=== PATIENT | male | born 1935 | race Caucasian/White ===

== ENCOUNTER 2018-08-20 06:22 | Day surgery (SDC) | payer OTHER ==
--- NOTE | 2018-08-15 09:21 | RAD REPORT ---
EXAM DESCRIPTION: Angelica Leger (2 Views)08/15/2018 9:14 am CLINICAL HISTORY: Cardiomegaly/preop exam for heart valve surgery COMPARISON: 2016 FINDINGS: The lungs appear clear of acute infiltrate. The heart is moderately enlarged. Scoliosis i nvolves the spine IMPRESSION: No acute abnormalities displayed
[2018-08-15 09:53] LABS: Absolute Lymphocytes (CBC) 2.1 K/uL (0.7-4.9); Absolute Monocytes 0.8 K/uL (0.1-1.3); Absolute Neutrophil 5.6 K/uL (1.8-8.0); Basophils % 0.6 % (0-1.3); Eosinophils % 3.6 % (0-4.4); Hematocrit 35.3 % (39.6-49.0); Lymphocytes % 23.2 % (15.3-44.8); MCV 65.8 fL (80-100); MPV 9.4 fL (7.6-11.3); Monocytes % 8.8 % (3.3-12.3); RBC Red Blood Cell Count 5.36 M/uL (4.33-5.43)
[2018-08-15 10:03] LABS: Potassium 4.6 mmol/L (3.5-5.1)
[2018-08-15 10:58] LABS: Platelet Estimate ADEQ
[2018-08-15 10:59] LABS: Anisocytosis 1+; Blood Morphology Comment NOTED (NOT SEEN); Hypochromasia 2+
[2018-08-15 11:08] LABS: Protime INR 0.96
--- NOTE | 2018-08-15 14:32 | EKG ---
Test Date: 2018-08-15 Test Time: 08:55:20 Attendance Clerk: TAJ MEASUREMENT RESULTS: Intervals: Rate: 59 IL: 206 QRSD: 100 QT: 430 QTc: 425 [place]: P: 66 IL: 206 QRS: 45 T: 43 INTERPRETIVE STATEMENTS: Sinus bradycardia Otherwise normal ECG Compared to ECG 10/12/2016 17:48:20 No significant changes Electronically Signed On 08-15-18 14:31:17 CDT by Maurice Harrison
[~2018-08-20 06:22] MED LIST: ATROPINE SULF 1 MG/10 ML SYR IV ONE; FENTANYL CITR 100 MCG/2 ML ONE; MIDAZOLAM HCL 2 MG/2 ML INJ ONE
--- OUTSIDE RECORDS SUMMARY | 2018-08-20 06:24 | XMS REPORT | Clinical Summary ---
:1935 Author Organization [facility] Address [address] [place] [address] Phone Care Team Providers Name Role Phone Unavailable Primary Care Provider Unavailable Allergies No Known Allergies Current Medications Not on file Active Problems Not on file Encounters Date Type Specialty Care Team Description 08/12/2018 Hospital Encounter Cardiology Rj Rose Mitral valve MD Elan insufficiency, unspecified etiology 08/07/2018 Outside Orders Central Scheduling Rj Rose Mitral valve MD Elan insufficiency, unspecified etiology (Primary Dx) after 08/19/2017 Social History Tobacco Use Types Packs/Day Years Used Date Never Assessed Sex Assigned at Date Recorded Not on file Last Filed Vital Signs Vital Sign Reading Time Taken Blood Pressure 134/72 08/12/2018 10:06 AM CDT Pulse 59 08/12/2018 10:06 AM CDT Temperature - - Respiratory Rate 15 08/12/2018 10:06 AM CDT Oxygen Saturation 97% 08/12/2018 10:06 AM CDT Inhaled Oxygen Concentration - - Weight - - Height - - Body Mass Index - - Plan of Treatment Not on file Results ECHOCARDIOGRAM REPORT - SCAN (08/12/2018 2:52 PM)Transesophageal echo (2017 8:59 AM) Component Value Ref Range Ejection Fraction Specimen Performing Laboratory [facility] Narrative Transesophageal Echocardiography Report (MARILEE) Demographics Patient NameRIGO JARAMILLO Date of Study 08/12/2018 GenderMale Visit [id number] RaceUnknown Number op Number Date of 1935 Referring Rj Rose Physician Age 83 year(s) Workforce Management Coordinator Bi Epperson Interpret Sonia Johnston, Physician KAUR Saeed FEL Procedure Type of Study MARILEE procedure:TRANSESOPHAGEAL ECHO Indications:Mitral regurgitation. Clinical History HTN,SOB,CP,MR,MVP Height: 70 inches Weight: 83.91 kg (185 lbs) BSA: 2.02 m^2 BMI: 26.54 kg/m^2 HR: 57 bpm BP: 148/68 mmHg Procedure Informed Consent MARILEE procedure notes The patient was counseled and informed consent was obtained. Topical and intravenous anesthesia was administered. The esophagus was intubated without difficulty. The probe was passed and all standard echocardiographic views were obtained. IV saline contrast echo examination was performed with MARILEE. The patient tolerated the procedure well. Procedure Medications - Versed I.V. 2 mg. - Fentanyl I.V. 50 mcg. Summary Normal left ventricular chamber size. Normal wall thickness. Normal overall left ventricular systolic function. No apparent segmental wall motion abnormalities. There is bileaflet mitral valve prolapse. 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 There is severe, eccentric mitral regurgitation. The jet is directed anterior and septally. Unable to estimate peak systolic PA pressure; inadequate TR velocity signal. Mild aortic stenosis. AoV area by planimetery is in the range of 1.8 cm2. Signature Findings Rhythm/BPRegular sinus rhythm during the exam. Left Ventricle Normal left ventricular chamber size. Normal wall thickness. Normal overall left ventricular systolic function. No apparent segmental wall motion abnormalities. Left AtriumLA is enlarged but severity assessment is unreliable due to known MARILEE sector size limitation. Right VentricleThe right ventricular chamber size and systolic function are within normal limits. Right Atrium RA cavity size is normal . Atrial SeptumA patent foramen ovale (PFO) is not demonstrated by color Doppler. IV saline contrast injection was negative for a PFO (patent foramen ovale) at rest . Aortic Valve Mild AoV cusp thickening. Mild aortic stenosis. AoV area by planimetery is in the range of 1.8 cm2. Mild aortic regurgitation. Mitral Valve Mild mitral annular calcification. There is bileaflet mitral valve prolapse. 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 There is severe, eccentric mitral regurgitation. The jet is directed anterior and septally. Tricuspid ValveNormal TV structure and function. No evidence of tricuspid regurgitation. Unable to estimate peak systolic PA pressure; inadequate TR velocity signal. Pulmonic Valve Normal PV structure and function. AortaGrade 2 plaque (extensive intimal thickening) in the descending thoracic aorta . There is focal aortic atheroma in the following location: proximal aortic arch . PericardiumNo pericardial effusion is visualized. IVC/SVC/PA/PV/PleuralThe right upper pulmonary vein (RUPV) is normal . Reversed systolic flow is noted in the right upper pulmonary vein. Procedure Note Interface, External Ris In - 08/12/2018 2:16 PM CDT Transesophageal Echocardiography Report (MARILEE) Demographics Patient Name RIGO JARAMILLO Date of Study 08/12/2018 Gender Male Visit Number [id number] Race Unknown Room Number op Number Date of 1935 Referring Rj Driver MD Age 83 year(s) Workforce Management Coordinator Bi Epperson Interpreting Physician CARISSA Pathak Fellow KAUR Bobby FEL Procedure Type of Study MARILEE procedure:TRANSESOPHAGEAL ECHO Indications:Mitral regurgitation. Clinical History HTN,SOB,CP,MR,MVP Height: 70 inches Weight: 83.91 kg (185 lbs) BSA: 2.02 m^2 BMI: 26.54 kg/m^2 HR: 57 bpm BP: 148/68 mmHg Procedure Informed Consent MARILEE procedure notes The patient was counseled and informed consent was obtained. Topical and intravenous anesthesia was administered. The esophagus was intubated without difficulty. The probe was passed and all standard echocardiographic views were obtained. IV saline contrast echo examination was performed with MARILEE. The patient tolerated the procedure well. Procedure Medications - Versed I.V. 2 mg. - Fentanyl I.V. 50 mcg. Summary Normal left ventricular chamber size. Normal wall thickness. Normal overall left ventricular systolic function. No apparent segmental wall motion abnormalities. There is bileaflet mitral valve prolapse. 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 There is severe, eccentric mitral regurgitation. The jet is directed anterior and septally. Unable to estimate peak systolic PA pressure; inadequate TR velocity signal. Mild aortic stenosis. AoV area by planimetery is in the range of 1.8 cm2. Signature Findings Rhythm/BP Regular sinus rhythm during the exam. Left Ventricle Normal left ventricular chamber size. Normal wall thickness. Normal overall left ventricular systolic function. No apparent segmental wall motion abnormalities. Left Atrium LA is enlarged but severity assessment is unreliable due to known MARILEE sector size limitation. Right Ventricle The right ventricular chamber size and systolic function are within normal limits. Right Atrium RA cavity size is normal . Atrial Septum A patent foramen ovale (PFO) is not demonstrated by color Doppler. IV saline contrast injection was negative for a PFO (patent foramen ovale) at rest . Aortic Valve Mild AoV cusp thickening. Mild aortic stenosis. AoV area by planimetery is in the range of 1.8 cm2. Mild aortic regurgitation. Mitral Valve Mild mitral annular calcification. There is bileaflet mitral valve prolapse. 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 There is severe, eccentric mitral regurgitation. The jet is directed anterior and septally. Tricuspid Valve Normal TV structure and function. No evidence of tricuspid regurgitation. Unable to estimate peak systolic PA pressure; inadequate TR velocity signal. Pulmonic Valve Normal PV structure and function. Aorta Grade 2 plaque (extensive intimal thickening) in the descending thoracic aorta . There is focal aortic atheroma in the following location: proximal aortic arch . Pericardium No pericardial effusion is visualized. IVC/SVC/PA/PV/Pleural The right upper pulmonary vein (RUPV) is normal . Reversed systolic flow is noted in the right upper pulmonary vein. after 08/19/2017
[2018-08-20] MEDS ORDERED: HEPA 1000U/500MLS 1,000 UNIT/500 ML BAG IV ONE (06:27)
[2018-08-20] MEDS ORDERED: NA CHLORIDE 0.9% 500 ML ONE (06:27)
[2018-08-20] MEDS ORDERED: NA CHLORIDE 0.9% 0 ML ONE (06:28)
[2018-08-20] MEDS ORDERED: NA CHLORIDE 0.9% 100 ML IV ONE (06:28)
[2018-08-20] MEDS ORDERED: ATROPINE SULF 1 MG/10 ML SYR IV ONE (06:28)
[2018-08-20] MEDS ORDERED: LIDOCAINE 1% MPF 5 ML VIAL ONE ×2 (06:41→08:40)
[2018-08-20] MEDS ORDERED: FUROSEMIDE 20 MG/ 2ML VIAL ONE (07:28)
[2018-08-20] MEDS ORDERED: MIDAZOLAM HCL 2 MG/2 ML INJ ONE (07:28)
[2018-08-20] MEDS ORDERED: FENTANYL CITR 100 MCG/2 ML ONE (07:29)
[2018-08-20 09:17] VITALS: O2SAT 100
[2018-08-20 12:00] VITALS: BP 120/57; TEMP 97
--- NOTE | 2018-08-20 19:05 | OP ---
Date of Procedure: 08/20/2018 Surgeon: Maurice Harrison MD Procedure: Left heart catheterization, right heart catheterization, selective coronary artery angiog trupti, left ventriculogram, O2 saturations and cardiac output. 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 The plan was to do the studies before he has mitral valve clipping by Dr. Rose in [place]. Procedure In Detail: The patient was brought into the slabber as an outpatient, prepped and draped in the routine sterile fashion, given 2 mg of Versed for IV sedation. O2 nasal cannula 2 L was also used. A 6-Cymraes sheath introduced in the right common femoral artery. A 7-Cymraes sheath introduced in the right common femoral vein. StarClose was used to close the artery. Pressure was held to vikash se the vein. Six-Cymraes catheters were used to do the diagnostic catheterization on the left side an d he had minimal LAD plaquing, otherwise normal RCA and circumflex. The right heart catheterization using [place]-Zeinab catheter via the right common femoral vein was used to obtain a cardiac output of 4.3 L/minute. O2 saturations were pending. Ejection fraction was 60%. End-diastolic pressure was 20 m mHg. Right ventricular pressure was 58/12, PA pressure was 63/21, wedge was 22. Complications: None. Blood Loss: 5 cc. Postoperative Diagnoses: Severe mitral regurgitation, mild coronary artery disease, severe pulmonary hypertension. The plan is for mitral valve clipping. Operators: Maurice Harrison M.D., and Marialuisa Carey. Total conscious sedation was 45 minutes. SANJAY/BARBARA Voice ID: [id number] Report ID: [id number]
== END 2018-08-20 10:10 | disposition home health service (06) ==
LOC: CCL 06:22
DX: I34.0 Nonrheumatic mitral (valve) insufficiency (principal); I25.10 Atherosclerotic heart disease of native coronary artery without angina pectoris; I27.20 Pulmonary hypertension, unspecified; I11.0 Hypertensive heart disease with heart failure; I50.30 Unspecified diastolic (congestive) heart failure; R07.9 Chest pain, unspecified; R06.02 Shortness of breath
CPT/HCPCS: 36415; 71046; 80048; 85025; 85610; 85730; 93005; 93460; C1893; J1940; J2250; J3010; J0583